=== PATIENT | female | born 1975 | race Caucasian/White ===

== ENCOUNTER → 2017-11-04 | Outpatient (CLI) | payer OTHER ==
--- NOTE | 2017-11-05 07:41 | MAMMOGRAPHY REPORT ---
THIS REPORT HAS BEEN AMENDED. BILATERAL DIGITAL SCREENING MAMMOGRAM TOMOSYNTHESIS WITH CAD: 11/04/2017 CLINICAL HISTORY: Routine screening. Patient has no complaints. TECHNIQUE: Breast tomosynthesis in addition to standard 2D mammography was performed. Current study was also evaluated with a Computer Aided Detection (CAD) system. COMPARISON: No prior exams were available for comparison. BREAST COMPOSITION: There are scattered areas of fibroglandular density in both breasts. FINDINGS: No suspicious mass, architectural distortion or cluster of microcalcifications is seen. IMPRESSION: ACR BI-RADS CATEGORY 1: NEGATIVE There is no mammographic evidence of malignancy. Prior outside mammograms are currently being reques john paul and if obtained they will be reviewed, compared to the current exam to assess for any more subtle changes, and an addendum will be made to this report. Otherwise, a 1 year screening mammogram is re commended. The patient will receive written notification of the results. Approximately 10% of breast cancers are not detected with mammography. A negative mammographic report should not delay biopsy if a clinically suggestive mass is present. Meg Ugarte M.D. ay/:11/04/2017 14:47:12 Aircraft Quality Control Inspector: Natalia ROBERTS(Rosario)(M), [facility] letter sent: Normal 07/30 BI-RADS Code: ACR BI-RADS Category 1: Negative AMENDMENT: 11/11/2017 Meg Ugarte M.D. A prior mammogram dated 03/07/2012 from [facility] became available for review. There has been no significan t interval change comparing to the prior outside mammogram. No new suspicious masses, calcifications , areas of architectural distortion or asymmetries are seen. Recommend routine screening mammography in 1 year. Amended BI-RADS: ACR BI-RADS Category 1: Negative letter sent: Normal 2
== END | disposition home or self-care (01) ==
LOC: C.MAMM 14:01
PROVIDERS: ATTEND Obstetrics & Gynecology
DX: Z12.31 Encounter for screening mammogram for malignant neoplasm of breast (principal)

== ENCOUNTER → 2017-11-29 | Outpatient (CLI) | payer OTHER ==
--- NOTE | 2017-11-29 14:29 | DIAGNOSTIC IMAGING REPORT ---
CHEST 2 VIEWS ROUTINE CLINICAL HISTORY: J20.9 Acute bronchitis with [id number] Abnormal lung jonah COMPARISON STUDY: No previous studies for comparison. FINDINGS: The bones soft tissues and hemidiaphragms are normal. The cardiomediastinal silhouette is normal. The lungs are clear. The pulmonary vasculature is normal. IMPRESSION: Negative chest. The above report was generated using voice recognition software. It may contain grammatical, syntax or spelling errors. Electronically signed by: Gerard Owens M.D. 11/29/2017 2:27 PM Dictated Date/Time: 11/29/2017 2:22 PM
== END | disposition home or self-care (01) ==
LOC: C.RAD 14:05
PROVIDERS: ATTEND Physician Assistant
DX: J20.9 Acute bronchitis, unspecified (principal); R09.89 Other specified symptoms and signs involving the circulatory and respiratory systems